=== PATIENT | male | born 1955 | race Caucasian/White ===

== ENCOUNTER 2017-05-03 10:58 | Outpatient (CLI) | payer OTHER | END 2017-05-03 10:59 | disposition home or self-care (01) | LOC: SC 10:58 | PROVIDERS: ATTEND Internal Medicine Pulmonary Disease | DX: G47.30 Sleep apnea, unspecified (principal); R06.83 Snoring; G47.8 Other sleep disorders | CPT/HCPCS: 99203; 99212 ==

== ENCOUNTER 2017-05-25 19:08 | Outpatient (CLI) | payer OTHER | END 2017-05-25 19:09 | disposition home or self-care (01) | LOC: SC 19:08 | PROVIDERS: ATTEND Internal Medicine Pulmonary Disease | DX: G47.61 Periodic limb movement disorder (principal) | CPT/HCPCS: 95810 ==

== ENCOUNTER 2017-06-15 09:16 | Outpatient (CLI) | payer OTHER | END 2017-06-15 09:17 | disposition home or self-care (01) | LOC: SC 09:16 | PROVIDERS: ATTEND Nurse Practitioner Family | DX: G47.61 Periodic limb movement disorder (principal); R06.83 Snoring | CPT/HCPCS: 99212; 99214 ==